=== PATIENT | female | born 1940 | race Caucasian/White ===

== ENCOUNTER 2020-05-11 00:25 | Day surgery (SDC) | payer MEDICARE ==
[~2020-05-11 00:25] MED LIST: ACET325 PO; AMLO10 PO; ASPI325 PO; ASPI81EC PO; ATOR10 PO; BRIMONIDINE TART5 ML BOTHEYES; Bactrim Ds Tab1 EACH PO; CARV25 PO; CILO50 PO; CLOP75 PO; Combigan Eye Dro5 ML BOTHEYES; D3-20002000 UNIT PO; DORZOLAMIDE 2%10 ML BOTHEYES; DORZOPSO BOTHEYES; DOXY100 PO; FOLBIC RF TABL1 EACH PO; GLIP5 PO; HYDCHL25 PO; INSUASPI SUBQ; INSULANI SUBQ; INSULANPEN SC; INSULIN LI100 UNIT/2 SC; LATA.005SO BOTHEYES; LEVFLO500 PO; MAGOXI400; METF500; METF500 PO; OMEP40CA12 PO; ONDA4ODT MM; PANT40; PANT40 PO; PROTONIX 40 MG PO; RAMI5 PO; SULTRIDS PO; TIMDOROPSO BOTHEYES; TIMOLOL MALEATE5 ML BOTHEYES; WARF5 PO
== END 2020-05-11 22:36 | disposition home or self-care (01) ==
LOC: WOUND 00:25
DX: E11.621 Type 2 diabetes mellitus with foot ulcer (principal); E11.51 Type 2 diabetes mellitus with diabetic peripheral angiopathy without gangrene; E11.42 Type 2 diabetes mellitus with diabetic polyneuropathy; C16.9 Malignant neoplasm of stomach, unspecified; L97.419 Non-pressure chronic ulcer of right heel and midfoot with unspecified severity; L97.429 Non-pressure chronic ulcer of left heel and midfoot with unspecified severity; I10 Essential (primary) hypertension; Z79.4 Long term (current) use of insulin; Z79.899 Other long term (current) drug therapy
CPT/HCPCS: G0463

== ENCOUNTER 2020-05-31 20:11 | Inpatient (IN) | payer MEDICARE ==
[~2020-05-31] VITALS: Ht 167.6 cm; Wt 53.6 kg
[~2020-05-31 20:11] MED LIST changes: -BRIMONIDINE TART5 ML BOTHEYES; -DORZOLAMIDE 2%10 ML BOTHEYES; -INSULIN LI100 UNIT/2 SC; -LATA.005SO BOTHEYES; -PROTONIX 40 MG PO; -TIMOLOL MALEATE5 ML BOTHEYES
[2020-05-31 20:33] LABS: BASOPHILS ABSOLUTE AUTO 0.02 K/mm3 (0.00-0.23); BASOPHILS PERCENT AUTO 0 % (0-2); EOSINOPHILS PERCENT AUTO 0 % (0-6); Hematocrit 28.7 % (33.0-51.0); Hemoglobin 8.2 g/dL (11.5-16.0); IMMATURE GRAN PERCENT AUTO 1 % (0-1); LYMPHOCYTES ABSOLUTE AUTO 1.32 K/mm3 (0.84-5.20); LYMPHOCYTES PERCENT AUTO 10 % (21-46); MONOCYTES ABSOLUTE AUTO 0.27 K/mm3 (0.16-1.47); MONOCYTES PERCENT AUTO 2 % (4-13); Mean Corpuscular HGB 27.5 pg (26.0-34.0); Mean Corpuscular HGB Conc 28.6 g/dL (31.5-36.5); Mean Corpuscular Volume 96 fL (80-100); Mean Platelet Volume 11.8 fL (9.1-12.4); NEUTROPHILS ABSOLUTE AUTO 11.61 K/mm3 (1.96-9.15); NEUTROPHILS PERCENT AUTO 87 % (41-73); Platelet Count 375 K/mm3 (150-400); RDW Coefficient Variation 15.7 % (11.7-14.2); RDW Standard Deviation 54.3 fL (35.1-46.3); Red Blood Cell Count 2.98 M/mm3 (3.80-5.20); White Blood Cell Count 13.32 K/mm3 (4.00-11.30)
[2020-05-31 20:50] LABS: International Normalized Ratio 0.95; Prothrombin Time Results 10.2 Sec (9.7-11.5)
[2020-05-31] MEDS ORDERED: BRIMONIDINE TART5 ML BOTHEYES (20:52)
[2020-05-31] MEDS ORDERED: LATA.005SO BOTHEYES (20:52)
[2020-05-31] MEDS ORDERED: DORZOLAMIDE 2%10 ML BOTHEYES (20:53)
[2020-05-31] MEDS ORDERED: TIMOLOL MALEATE5 ML BOTHEYES (20:53)
[2020-05-31] MEDS ORDERED: PANT40 PO (20:54)
[2020-05-31] MEDS ORDERED: BASAGLAR K100 UNIT/1 SC (20:55)
[2020-05-31 20:56] LABS: Albumin/Globulin Ratio 0.8 (0.8-1.8); Bilirubin, Total 0.5 mg/dL (0.1-1.0); Bun/Creatinine Ratio 41.3 (12.0-20.0); Calcium, Blood 9.2 mg/dL (8.5-10.1); Creatinine, Blood 1.26 mg/dL (0.40-1.00); Potassium, Blood 6.2 mmol/L (3.5-5.5)
[2020-05-31] MEDS ORDERED: INSULIN LI100 UNIT/6 SC (20:56)
[2020-05-31] MEDS ORDERED: CALCIUM 600 +1 EA10 PO (20:57)
[2020-05-31 22:42] LABS: Glucose, Blood 1119 mg/dL (70-99)
--- NOTE | 2020-05-31 23:47 | NUR ---
PATIENT ARRIVED TO ICU 9 VIA GURNEY FROM ED. PATIENT AWAKENS TO SLIGHT STIMULI, ANSWERING QUESTIONS APPROPRIATELY, FALLING BACK TO SLEEP WHEN UNDISTURBED. 1ST UNIT OF PRBC FINISHING. PROTONIX DRIP INFUSING. INSULIN DRIP INFUSING 5.8 UNITS. PATIENT DENIES NAUSEA AT THIS TIME. PATIENT TRANSFERRED TO BED USING SLIDER SHEET AND PLACED ON ICU MONITORS. CONFIRMED DNR ORDER WITH DOCTOR KIM. POWER GLIDE IV STARTED FOR Q1 HR GLUCOSE DRAWS.
[2020-05-31 23:51] LABS: Glucose, Blood 1083 mg/dL (70-99)
[2020-06-01 01:06] LABS: Glucose, Blood 964 mg/dL (70-99)
[2020-06-01 01:33] LABS: Source, Urine Voided
[2020-06-01 01:36] LABS: Bilirubin, Urine Neg (Neg); Blood, Urine Neg (Neg); Glucose Qualitative, Urine 4+ (Neg); Ketones, Urine 4+ (Neg); Leukocyte Esterase, Urine 1+ (Neg); Nitrite, Urine Neg (Neg); Protein, Urine Neg (Neg); Specific Gravity, Urine 1.015 (1.003-1.022); Urobilinogen, Urine NORM (Normal)
[2020-06-01 01:43] LABS: Appearance, Urine Clear (Clear); Color, Urine Pale Yellow (P-Yellow)
[2020-06-01 01:47] LABS: Bacteria Rare /hpf; Red Blood Cells, Urine Not Seen /hpf (0-2); Squamous Epithelial Cells Rare /hpf (Few)
[2020-06-01 01:49] LABS: Glucose, Blood 869 mg/dL (70-99)
[2020-06-01 02:43] LABS: Glucose, Blood 830 mg/dL (70-99)
[2020-06-01 03:54] LABS: Glucose, Blood 752 mg/dL (70-99)
[2020-06-01 04:38] LABS: BASOPHILS ABSOLUTE AUTO 0.02 K/mm3 (0.00-0.23); BASOPHILS PERCENT AUTO 0 % (0-2); EOSINOPHILS PERCENT AUTO 0 % (0-6); Hematocrit 30.4 % (33.0-51.0); Hemoglobin 9.8 g/dL (11.5-16.0); IMMATURE GRAN ABSOLUTE AUTO 0.07 K/mm3 (0.00-0.10); IMMATURE GRAN PERCENT AUTO 1 % (0-1); LYMPHOCYTES ABSOLUTE AUTO 1.25 K/mm3 (0.84-5.20); LYMPHOCYTES PERCENT AUTO 11 % (21-46); MONOCYTES ABSOLUTE AUTO 0.54 K/mm3 (0.16-1.47); MONOCYTES PERCENT AUTO 5 % (4-13); Mean Corpuscular HGB Conc 32.2 g/dL (31.5-36.5); Mean Corpuscular Volume 87 fL (80-100); Mean Platelet Volume 10.7 fL (9.1-12.4); NEUTROPHILS ABSOLUTE AUTO 9.59 K/mm3 (1.96-9.15); NEUTROPHILS PERCENT AUTO 84 % (41-73); Platelet Count 312 K/mm3 (150-400); RDW Coefficient Variation 14.6 % (11.7-14.2); RDW Standard Deviation 46.1 fL (35.1-46.3); White Blood Cell Count 11.47 K/mm3 (4.00-11.30)
[2020-06-01 05:19] LABS: Albumin, Blood 2.8 g/dL (3.4-5.0); Albumin/Globulin Ratio 0.7 (0.8-1.8); Bilirubin, Total 1.3 mg/dL (0.1-1.0); Calcium, Blood 8.9 mg/dL (8.5-10.1); Creatinine, Blood 1.19 mg/dL (0.40-1.00); Globulin, Blood 3.8 g/dL (2.2-4.0); Total Protein, Blood 6.6 g/dL (6.4-8.2)
[2020-06-01 05:21] LABS: Potassium, Blood 3.8 mmol/L (3.5-5.5)
[2020-06-01 06:00] LABS: Glucose (ISTAT POC) 592 mg/dL (70-99)
--- NOTE | 2020-06-01 06:43 | NUR ---
SUMMARY PATIENT RESTING QUIETLY IN BED NO BM OR NAUSEA DURING THE NIGHT. VOIDING ON BEDPAN WITHOUT DIFFICULTY. 2 UNITS PRBC GIVEN. PATIENT REPOSITIONING IN BED FOR COMFORT. INSULIN DRIP CONTINUES NOW AT 5 UNITS/HR. BOTH HEEL DRESSINGS CHANGED SEE PICTURES. PATIENT VERBALIZED THAT SHE HAS BEEN GOING TO [facility] FOR TREATMENT.
[2020-06-01 07:10] LABS: Glucose (ISTAT POC) 509 mg/dL (70-99)
--- NOTE | 2020-06-01 07:36 | NUR ---
ASSUMED CARE: REPORT RECEIVED FROM BENI Jorgensen RN. ASSUMED CARE OF THIS PT AT APPROX 0700. ON ASSESSMENT, THE PT IS AWAKE, A&O. SHE STS FEELING "MUCH BETTER" & HAS IMPROVED SKIN COLOR, PER REPORT. PT CONTINUES ON RA W/ O2 SATS > 92%. MONITOR SHOWS SR W/ HR 80s, BP STABLE & IMPROVED SINCE 2 UNITS PRBCs. PT HAS NO GI COMPLAINTS OTHER THAN BEING THIRSTY, SHE HAS BEEN PROVIDED W/ MOIST MOUTH SWAB & STS IMPROVEMENT. PT VOIDING W/O DIFFICULTY. SKIN CONDITION OVERALL FRAGILE BUT INTACT, PT W/ PRESSURE ULCERS TO BILATERAL HEELS THAT ARE NOT NEW. WOUNDS CLEANSED & DRESSINGS CHANGED BY PRIOR RN. WILL CONTINUE TO MONITOR & UPDATE NEEDED.
--- NOTE | 2020-06-01 09:07 | NUR ---
DR BRYAN: PROVIDER AT BEDSIDE TO EVAL PT. SHE HAS PLACED ORDERS FOR CONTINUED LAB WORK & WILL BE PLACING CONSULT ORDERS FOR PT's ONCOLOGIST, DR FERRER, TO SEE HER DURING HOSPITALIZATION. ONCE PT IS ALLOWED TO HAVE PO INTAKE, SHE WOULD LIKE DIETARY CONSULT TO BE PLACED TO DISCUSS DIABETIC LIQUID DIET, PT RARELY EATS SOLID FOODS AT HOME & DRINKS FRUIT JUICE FREQUENTLY.
[2020-06-01 09:08] LABS: Hematocrit 29.5 % (33.0-51.0); Hemoglobin 9.8 g/dL (11.5-16.0)
[2020-06-01 09:27] LABS: Albumin, Blood 2.8 g/dL (3.4-5.0); Anion Gap 6 mmol/L (6-16); Blood Urea Nitrogen 45 mg/dL (8-24); Bun/Creatinine Ratio 41.3 (12.0-20.0); CO2, Blood 25 mmol/L (21-32); Calcium, Blood 8.6 mg/dL (8.5-10.1); Chloride, Blood 113 mmol/L (98-108); Creatinine, Blood 1.09 mg/dL (0.40-1.00); Glomerular Filtration Rate 51 (60-); Glucose, Blood 409 mg/dL (70-99); Phosphorus, Blood 2.7 mg/dL (2.5-4.9); Potassium, Blood 3.6 mmol/L (3.5-5.5); Sodium, Blood 144 mmol/L (136-145)
--- NOTE | 2020-06-01 13:21 | NUR ---
DR HAWKINS / DR BRYAN: DR HAWKINS AT BEDSIDE AT EVAL PT. ORDER FOR CLEAR LIQUID DIET HAS BEEN PLACED. HE STS THAT HIS PLAN WILL LARGELY BE DETERMINED BY WHAT DR FERRER HAS TO SAY DURING HIS CONSULTATION. DR HAWKINS MAY CHOOSE TO COMPLETE ANOTHER EGD TOMORROW BUT DOES NOT WISH TO MAKE THE PT NPO AFTER MN AT THIS TIME. CALL FROM DR BRYAN REQUESTING UPDATE ON DR HAWKINS's EVAL OF THE PT. UPDATED HER ON DR HAWKINS's POC. SHE STS OKAY TO FEED THE PT CLEAR LIQUID ADA DIET ORDERED & TRANSITION OFF OF INSULIN DRIP. ORDERS PLACED FOR LANTUS & GERTRUDE COVERAGE. STS TO FINISH 1.5L NS PER EMAR & THEN D/C IVF.
[2020-06-01 13:40] LABS: Albumin, Blood 2.4 g/dL (3.4-5.0); Anion Gap 8 mmol/L (6-16); Blood Urea Nitrogen 42 mg/dL (8-24); Bun/Creatinine Ratio 42.4 (12.0-20.0); CO2, Blood 22 mmol/L (21-32); Chloride, Blood 118 mmol/L (98-108); Creatinine, Blood 0.99 mg/dL (0.40-1.00); Glomerular Filtration Rate 57 (60-); Glucose, Blood 274 mg/dL (70-99); Phosphorus, Blood 2.7 mg/dL (2.5-4.9); Potassium, Blood 3.3 mmol/L (3.5-5.5); Sodium, Blood 148 mmol/L (136-145)
--- NOTE | 2020-06-01 16:56 | NUR ---
SHIFT SUMMARY: NO ACUTE CHANGES SINCE PRIOR UPDATES. PT REMAINS A&O, PLEASANT & COOPERATIVE W/ CARE. INSULIN DRIP HAS BEEN TURNED OFF SINCE APPROX 1500 & PT HAS BEEN TX W/ CORRECTIVE SLIDING SCALE PER EMAR THIS EVENING. LS REMAIN DIM T/O W/ O2 SATS > 92% ON RA. MONITOR SHOWS SR W/ HR 80s, BP STABLE. PT HAS HAD ONE EPISODE OF NAUSEA WHILE SITTING UP IN CHAIR AFTER EATING LUNCH, RESOLVED W/ GETTING BACK IN BED & RESTING. NO OTHER GI COMPLAINTS, PT HAS HAD NO FURTHER COFFEE GROUNDS EMESIS OR DARK TARRY STLS. PT VOIDING W/O DIFFICULTY, REQUESTING BEDPAN APPROPRIATELY. SKIN CONDITION UNCHANGED FROM AM ASSESSMENT. WILL CONTINUE TO MONITOR & REPORT OFF TO ONCOMING RN.
[2020-06-01 17:12] LABS: Hematocrit 29.6 % (33.0-51.0); Hemoglobin 9.6 g/dL (11.5-16.0)
[2020-06-01 17:36] LABS: Albumin, Blood 2.6 g/dL (3.4-5.0); Anion Gap 7 mmol/L (6-16); Blood Urea Nitrogen 41 mg/dL (8-24); Bun/Creatinine Ratio 38.3 (12.0-20.0); CO2, Blood 23 mmol/L (21-32); Calcium, Blood 8.5 mg/dL (8.5-10.1); Chloride, Blood 115 mmol/L (98-108); Creatinine, Blood 1.07 mg/dL (0.40-1.00); Glomerular Filtration Rate 52 (60-); Glucose, Blood 296 mg/dL (70-99); Phosphorus, Blood 2.8 mg/dL (2.5-4.9); Potassium, Blood 3.7 mmol/L (3.5-5.5); Sodium, Blood 145 mmol/L (136-145)
--- NOTE | 2020-06-01 20:40 | NUR ---
PATIENT RESTING QUIETLY IN BED, REPOSITIONING SELF FOR COMFORT. NO COMPLAINTS OF NAUSEA OR ABD PAIN. SHERRY CLEAR LIQUIDS WELL. PROTONIX DRIP CONTINUES.
[2020-06-01 23:48] LABS: Hematocrit 30.2 % (33.0-51.0); Hemoglobin 9.8 g/dL (11.5-16.0)
[2020-06-02 05:13] LABS: BASOPHILS ABSOLUTE AUTO 0.02 K/mm3 (0.00-0.23); BASOPHILS PERCENT AUTO 0 % (0-2); EOSINOPHILS ABSOLUTE AUTO 0.03 K/mm3 (0.00-0.68); EOSINOPHILS PERCENT AUTO 0 % (0-6); Hematocrit 33.9 % (33.0-51.0); Hemoglobin 10.9 g/dL (11.5-16.0); IMMATURE GRAN ABSOLUTE AUTO 0.05 K/mm3 (0.00-0.10); IMMATURE GRAN PERCENT AUTO 0 % (0-1); LYMPHOCYTES ABSOLUTE AUTO 1.47 K/mm3 (0.84-5.20); LYMPHOCYTES PERCENT AUTO 11 % (21-46); MONOCYTES ABSOLUTE AUTO 0.56 K/mm3 (0.16-1.47); MONOCYTES PERCENT AUTO 4 % (4-13); Mean Corpuscular HGB 27.7 pg (26.0-34.0); Mean Corpuscular HGB Conc 32.2 g/dL (31.5-36.5); Mean Corpuscular Volume 86 fL (80-100); Mean Platelet Volume 10.5 fL (9.1-12.4); NEUTROPHILS ABSOLUTE AUTO 11.71 K/mm3 (1.96-9.15); NEUTROPHILS PERCENT AUTO 85 % (41-73); Platelet Count 296 K/mm3 (150-400); RDW Coefficient Variation 15.3 % (11.7-14.2); RDW Standard Deviation 47.9 fL (35.1-46.3); Red Blood Cell Count 3.93 M/mm3 (3.80-5.20); White Blood Cell Count 13.84 K/mm3 (4.00-11.30)
[2020-06-02 05:30] LABS: Albumin, Blood 2.9 g/dL (3.4-5.0); Anion Gap 7 mmol/L (6-16); Blood Urea Nitrogen 31 mg/dL (8-24); Bun/Creatinine Ratio 35.3 (12.0-20.0); CO2, Blood 22 mmol/L (21-32); Chloride, Blood 115 mmol/L (98-108); Creatinine, Blood 0.88 mg/dL (0.40-1.00); Glomerular Filtration Rate >60 (60-); Glucose, Blood 280 mg/dL (70-99); Potassium, Blood 3.5 mmol/L (3.5-5.5); Sodium, Blood 144 mmol/L (136-145)
--- NOTE | 2020-06-02 06:03 | NUR ---
SUMMARY PATIENT SLEEPING OFF AND ON T/O NIGHT. USING BEDPAN SEVERAL TIMES. PASSING SOFT SEMI FORMED BROWN STOOL. NO C/O NAUSEA T/O NIGHT. PROTONIX DRIP CONTINUES. SHERRY CLEAR LIQUIDS WELL. INSULIN DRIP REMAINS OFF.
--- NOTE | 2020-06-02 08:20 | NUR ---
ASSUMED CARE: REPORT RECEIVED FROM BENI Jorgensen RN. ASSUMED CARE OF THIS PT AT APPROX 0700. ON ASSESSMENT, THE PT IS RESTING QUIETLY. SHE AWAKENS EASILY & IS ALERT/ORIENTED TO ALL, FORGETFUL AT TIMES. LS ARE DIM T/O, PT ON RA W/ O2 SATS > 92%. MONITOR SHOWS SR W/ HR 80s, FREQUENT PVCs. BP STABLE. PT HAS NO GI COMPLAINTS, HAD MULTIPLE SOFT BROWN BMs DURING CATTLE KNOCKER, PER REPORT. TOLERATING CLEAR LIQUID DIET WELL. PT VOIDING W/O DIFFICULTY. SKIN OVERALL CDI, PRESSURE ULCERS TO BILAT HEELS UNCHANGED. WILL CONTINUE TO MONITOR & UPDATE NEEDED.
--- NOTE | 2020-06-02 10:30 | NUR ---
DR HAWKINS / DR BRYAN: DR HAWKINS AT BEDSIDE TO EVAL THE PT. STS HE MAY COMPLETE AN UPPER EGD TOMORROW AFTERNOON, NO CHANGES TO CURRENT POC. OKAY PER PROVIDER TO TRANSFER TO MEDICAL FLOOR IF OKAY W/ HOSPITALIST. DR BRYAN AT BEDSIDE TO EVAL PT. STS THAT PT IS OKAY TO BE MEDICAL W/ NO TELE STATUS, ORDERS PLACED. NO OTHER CHANGES AT THIS TIME.
--- NOTE | 2020-06-02 13:36 | NUR ---
TRANSFER TO MEDICAL FLOOR: REPORT HAS BEEN GIVEN TO LEOLA FORMAN RN TO ASSUME CARE. PT TRANSFERRED TO ROOM 330 VIA WC BY YEHUDA BATES, AT 1345. PT BELONGINGS, CHART & MEDS HAVE BEEN TAKEN UP AT THIS TIME ALSO.
--- NOTE | 2020-06-02 16:19 | NUR ---
06/02/20 7588 PT IS REFUSING PROTONIX AND WANTS IT OUT OF HER ARM DC"S AND CALLED .. DR SAID TO DC' MEDS AND SAY THE PT REFUSED.. PT DID HAVE A BROWN STOOL UP IN BAATHROOM NO BLOOD NOTED.. USE THE WALKER TO GET UP STEADY ON FEETNP DIZZINESS WHEN UP TWO MORE IV'S DC'D
--- NOTE | 2020-06-02 17:00 | NUR ---
06/02/2020 1700 transferred from ICU 1355 protonix drip running in right perf iv. pt got upset that she had th eprotonix drip running and demanded that we call the Dr. and have it dc'd i have rights and im going home [place] and i dont need it and i will pull it out if you dont take it out. i dc'c two more of pts iv's and left the power glide in right forearm. pt was up to br. steady on feet with a walker . had soft brown stool no blood noted.. pt remains on clear liquid diet not red color and ada.. pt dinner time cbg is 201 and 5 units given prior to dinner. up with assist for safety. pt want to go home where she lives with her brother
[2020-06-02 20:24] LABS: Hematocrit 31.5 % (33.0-51.0); Hemoglobin 10.2 g/dL (11.5-16.0)
--- NOTE | 2020-06-03 03:56 | NUR ---
SUMMARY: PT A/OX3, UP W/SBA AND FWW AND SPECIFIES NEEDS. SHE WAS PLEASANT AND COOPERATIVE W/CARE, SLEEPING MAJORITY OF NOCTE AND DENIED COMPLAINTS. PT TOLERATING CL ADA DIET W/O ANY RED COLORS BUT LACKS APPETITE. CBG 237 W/SCHEDULED INSULIN RECIEVED PER EMAR. SHE'S BEEN CONTINENT THIS SHIFT AND HAD X1 SOFT BROWN BM, NO S/S BLEEDING. PG TO MATT IS SL AND DIFFICULT TO DRAW LABS FROM BUT HGB/HCT STABLE THIS SHIFT. PT DENIES PAIN, NAUSEA, DIZZYNESS AND DYSPNEA. VSS/AFEBRILE, NO ACUTE CHANGES. WCTM AND REPORT TO DAY RN.
[2020-06-03 06:51] LABS: BASOPHILS ABSOLUTE AUTO 0.02 K/mm3 (0.00-0.23); BASOPHILS PERCENT AUTO 0 % (0-2); EOSINOPHILS ABSOLUTE AUTO 0.04 K/mm3 (0.00-0.68); EOSINOPHILS PERCENT AUTO 1 % (0-6); Hematocrit 32.3 % (33.0-51.0); Hemoglobin 10.3 g/dL (11.5-16.0); IMMATURE GRAN ABSOLUTE AUTO 0.03 K/mm3 (0.00-0.10); IMMATURE GRAN PERCENT AUTO 1 % (0-1); LYMPHOCYTES ABSOLUTE AUTO 1.25 K/mm3 (0.84-5.20); LYMPHOCYTES PERCENT AUTO 19 % (21-46); MONOCYTES ABSOLUTE AUTO 0.46 K/mm3 (0.16-1.47); MONOCYTES PERCENT AUTO 7 % (4-13); Mean Corpuscular HGB Conc 31.9 g/dL (31.5-36.5); Mean Corpuscular Volume 88 fL (80-100); Mean Platelet Volume 10.7 fL (9.1-12.4); NEUTROPHILS ABSOLUTE AUTO 4.68 K/mm3 (1.96-9.15); NEUTROPHILS PERCENT AUTO 72 % (41-73); Platelet Count 260 K/mm3 (150-400); RDW Coefficient Variation 15.9 % (11.7-14.2); RDW Standard Deviation 51.7 fL (35.1-46.3); Red Blood Cell Count 3.68 M/mm3 (3.80-5.20); White Blood Cell Count 6.48 K/mm3 (4.00-11.30)
[2020-06-03 07:06] LABS: Albumin, Blood 2.6 g/dL (3.4-5.0); Anion Gap 5 mmol/L (6-16); Blood Urea Nitrogen 19 mg/dL (8-24); Bun/Creatinine Ratio 23.3 (12.0-20.0); CO2, Blood 27 mmol/L (21-32); Calcium, Blood 8.3 mg/dL (8.5-10.1); Chloride, Blood 113 mmol/L (98-108); Creatinine, Blood 0.81 mg/dL (0.40-1.00); Glomerular Filtration Rate >60 (60-); Glucose, Blood 208 mg/dL (70-99); Phosphorus, Blood 1.7 mg/dL (2.5-4.9); Potassium, Blood 3.5 mmol/L (3.5-5.5); Sodium, Blood 145 mmol/L (136-145)
--- NOTE | 2020-06-03 10:07 | NUR ---
06/03/[address] HAWKINS. CANCELLED COVID TEST
--- NOTE | 2020-06-03 10:07 | NUR ---
06/03/20 1012 OK TO DISCHARGE PER DR FERRER HIS OFFICE WILL CALL HER AFTER SHE GETS HOME,
[2020-06-03] MEDS ORDERED: HUMALOG KW100 UNIT/1 (12:09)
== END 2020-06-03 13:40 | disposition home or self-care (01) | DRG 638 ==
LOC: ER 20:11 → ICUW 23:39 → MEDS 23:39 → ICUW 23:41 → MEDS 06-02 13:55
PROVIDERS: Emergency Medicine; Family Medicine; ADMIT Internal Medicine
DX: E11.10 Type 2 diabetes mellitus with ketoacidosis without coma (principal); K22.10 Ulcer of esophagus without bleeding; N17.9 Acute kidney failure, unspecified; R64 Cachexia; E44.0 Moderate protein-calorie malnutrition; D62 Acute posthemorrhagic anemia; Z66 Do not resuscitate; E86.0 Dehydration; E87.5 Hyperkalemia; N18.2 Chronic kidney disease, stage 2 (mild); E83.39 Other disorders of phosphorus metabolism; E11.51 Type 2 diabetes mellitus with diabetic peripheral angiopathy without gangrene; Z85.028 Personal history of other malignant neoplasm of stomach; Z79.4 Long term (current) use of insulin; Z89.429 Acquired absence of other toe(s), unspecified side; Z68.20 Body mass index [BMI] 20.0-20.9, adult
CPT/HCPCS: 36415; 36430; 80053; 80069; 81001; 82947; 83036; 85014; 85018; 85025; 85610; 85730; 86850; 86900; 86901; 86923; 93005; 93010; 96374; 96375; 96376; 99285-25; C1751; C9113; J0610; J1815; J2765; J7030; J7060; P9016